=== PATIENT | male | born 1955 | race Hispanic/Latino ===

== ENCOUNTER 2022-09-06 08:15 | Day surgery (SDC) | payer OTHER ==
[2022-09-06] MEDS ORDERED: NA CHLORIDE 0.9% 1,000 ML ONE (08:49)
[2022-09-06 09:16] LABS: MPV 7.7 fL (7.6-11.3)
[2022-09-06 09:47] LABS: Protime INR 1.21
[2022-09-06] MEDS ORDERED: FENTANYL CITR 100 MCG/2 ML ONE (09:55)
[2022-09-06] MEDS ORDERED: NALOXONE 0.4 MG/ML VIAL ONE (09:55)
[2022-09-06] MEDS ORDERED: MIDAZOLAM HCL 2 MG/2 ML INJ ONE (09:55)
[2022-09-06 11:34] VITALS: BMI 29.0
[2022-09-06 14:10] VITALS: BP 131/68; TEMP 97.1; O2SAT 100
--- NOTE | 2022-09-06 18:13 | RAD REPORT ---
EXAM DESCRIPTION: CT - Renal Biopsy CT - 09/06/2022 11:14 am CLINICAL HISTORY: Bilateral renal masses COMPARISON: Thorax W/ Con dated 08/09/2022; Abdomen Pelvis W/Wo Contrast dated 08/07/2022 FINDINGS: Preoperative diagnosis: Bilateral renal masses Post operative diagnosis: Same Conscious Sedation: 2 milligram Versed, 25 mcg Fentanyl. 30 minutes of qyxk-tn-opac time. Patient was continuously monitored by nursing staff. Contrast used: NONE Estimated blood loss: less than 5 mL Specimens: 2 x 18 gauge core biopsies of each lesion on the right and left kidney The patient was placed prone on the table and the flank area was prepped and draped in the usual ster ile fashion. 1% lidocaine was infiltrated into the subcutaneous tissues for local anesthesia. Under c omputed tomographic guidance, a 17 gauge introducer was advanced into the lesion. 2 x 18 gauge core s pecimens were first obtained of the renal lesion on the left side. Using a similar technique, 2 x 18 gauge core specimens were then obtained of the lesion on the right side. Postprocedure imaging demonstrated no complications. Samples were given to pathology for analysis. Th e patient tolerated the procedure without immediate complication and transferred to the recovery room in stable condition. IMPRESSION: 1. Technically successful CT guided biopsy of a left renal mass. 2. Technically successful CT guided biopsy of a right renal mass. 3. Moderate conscious sedation was utilized. 4. No immediate complications. All CT scans are performed using dose optimization technique as appropriate and may include automated exposure control or mA/KV adjustment according to patient size.
== END 2022-09-06 14:20 | disposition home or self-care (01) ==
LOC: DS 08:15
PROVIDERS: ATTEND Urology
DX: C64.2 Malignant neoplasm of left kidney, except renal pelvis (principal); C64.1 Malignant neoplasm of right kidney, except renal pelvis
CPT/HCPCS: 36415; 85049; 85610; 88305; 85730; 50200; J2250; J3010; J7030; J2310

== ENCOUNTER 2023-05-22 14:55 | Emergency (ER) | payer OTHER ==
--- OUTSIDE RECORDS SUMMARY | 2023-05-22 14:58 | XMS REPORT | Continuity of Care Document ---
:1955 Author Organization [facility] t Address [address] [place] [address] [address] [place] [address] Care Team Providers Name Role Phone Carol Guevara Primary Care Physician Doctor Unassigned, [place] Attending Clinician Unavailable Carol Guevara Attending Clinician Ruben Mcdonald MD Attending Clinician AVA MOODY Attending Clinician Unavailable Ava Moody MD Attending Clinician Radiology Attending Clinician Unavailable RADIOLOGY Attending Clinician Unavailable NEAL PALAFOX Attending Clinician Unavailable 2, [facility] Lab Attending Clinician Unavailable Brando Akers MD Attending Clinician BRANDO AKERS Attending Clinician Unavailable GERMAN MILLER Attending Clinician Unavailable Nurse, Ad[facility] Surgery Gu Attending Clinician Unavailable Rosette Sanchez MD Attending Clinician ROSETTE SANCHEZ Attending Clinician Unavailable Sandee Cage Attending Clinician SANDEE RUIZ Attending Clinician Unavailable German Miller MD Attending Clinician Guanakito [employer]ATION[employer] MECHANICGail Attending Clinician Pob, [facility] Lab Main Attending Clinician Unavailable CAROL MORENO Attending Clinician Unavailable CECILLE VELASQUEZ Attending Clinician Unavailable Winston Bloom DO Attending Clinician Cecille Velasquez DO Attending Clinician Lab, Ang - Db Attending Clinician Unavailable Uma Carrillo Attending Clinician UMA CHILDRESS Attending Clinician Unavailable CECILLE VELASQUEZ Admitting Clinician Unavailable Cecille Velasquez DO Admitting Clinician CAROL MORENO Admitting Clinician Unavailable Payers Payer Name Policy Type Policy Number Effective Date Expiration Date 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 kidney [facility] [id number] Bony Problem Common sclerosis [facility] [id number] Pulmonary Problem Com mon nodules [facility] [id number] Urinary Problem Commo n retention [facility] [id number] BPH loc w Problem Com mon urin Spirit obs/LUTS [facility] [id number] Acute Problem Common urinary Spirit retention [facility] [id number] Bilateral Problem Com mon renal Spirit masses [facility] Allergies, Adverse Reactions, Alerts Allergy Allergy Status Severity Reaction(s) Onset Inactive Treating Comm ents Source Name Type Date Date Clinician NO KNOWN Drug Active Univers ALLERGIE Class ity of [facility] Social History Social Habit Start Date Stop Date Quantity Comments Source Gender identity Universit y [facility] Sexual orientation [facility] University o f [facility] o f Alcohol Std Drinks [place] [facility] History [facility] o f Alcohol Binge [facility] History of Tobacco Current Smoker Co mmon Spirit - Use [facility] Sex Assigned At Common Sp diamond - [facility] Exposure to 2022-06-17 2022-06-27 Not sure University of SARS-CoV-2 (event) 00:00:00 15:23:00 [facility] Alcohol intake 2022-06-13 2022-06-13 Ex-drinker University 00:00:00 00:00:00 (finding) [facility] History of Social 2022-03-14 2022-03-14 Univers ity of function 00:00:00 00:00:00 [facility] Cigarettes smoked 2022-03-14 2022-03-14 Univers ity of current (pack per 00:00:00 00:00:00 [facility] ) - Reported Branch Cigarette 2022-03-14 2022-03-14 University of pack-years 00:00:00 00:00:00 [facility] Tobacco use and 2022-03-14 2022-03-14 Smokeless Universit y of exposure 00:00:00 00:00:00 tobacco non-user [facility] Alcohol Comment 2022-03-14 2022-03-14 quit 2.5 years Unive rsity of 00:00:00 00:00:00 ago [facility] Smoking Status Start Date Stop Date Source Current Smoker 2022-08-29 00:00:[address] [facility] Medications Ordered Filled Start Stop Current Ordering Indication Dosage Frequency Signature Comments Components Source Medication Medication Date Date Medication? Clinician (SIG) Name Name AMLODIPINE Yes [id number] 10mg TAKE 1 U nivers 10 mg 5-29 TABLET BY ity of tablet 00:00: MOUTH [place] 00 EVERY Medical MORNING. Branch MUST BE SEEN FOR FURTHER REFILLS AMLODIPINE Yes [id number] 10mg TAKE 1 U nivers 10 mg 5-29 TABLET BY ity of tablet 00:00: MOUTH [place] 00 EVERY Medical MORNING. Branch MUST BE SEEN FOR FURTHER REFILLS amLODIPine Yes [id number] 10mg Take 1 U nivers 10 mg 4-26 tablet by ity of tablet 00:00: mouth [place] 00 every Medical morning. Branch MUST BE SEEN FOR FURTHER REFILLS tamsulosin Yes [id number] .4mg Take 1 Univers 0.4 mg 24 4-26 capsule by ity of hr capsule 00:00: mouth [place] 00 every Medical morning. Branch MUST BE SEEN FOR FURTHER REFILLS amLODIPine 2023-0 Yes [id number] 10mg Take 1 U nivers 10 mg 4-26 tablet by ity of tablet 00:00: mouth [place] 00 every Medical morning. [place] MUST BE SEEN FOR FURTHER REFILLS tamsulosin 2022-0 Yes [id number] .4mg Take 1 Univers 0.4 mg 24 4-26 capsule by ity of hr capsule 00:00: mouth [place] 00 every Medical morning. Branch MUST BE SEEN FOR FURTHER REFILLS tamsulosin 2022-0 Yes [id number] .4mg Take 1 Univers 0.4 mg 24 4-26 capsule by ity of hr capsule 00:00: mouth [place] 00 every Medical morning. Branch MUST BE SEEN FOR FURTHER REFILLS tamsulosin 2022-0 Yes [id number] .4mg Take 1 Univers 0.4 mg 24 4-26 capsule by ity of hr capsule 00:00: mouth [place] 00 every Medical morning. [place] MUST BE SEEN FOR FURTHER REFILLS amLODIPine 2022-0 2022- No [id number] 10mg Take 1 Univers 10 mg 4-26 05-29 tablet by ity of tablet 00:00: 00:00 mouth [place] 00 :00 every Medical morning. [place] MUST BE SEEN FOR FURTHER REFILLS AMLODIPINE 2022-0 Yes [id number] TAKE 1 U nivers 10 mg 3-30 TABLET BY ity of tablet 00:00: MOUTH [place] 00 EVERY DAY Medical IN THE [place] MORNING TAMSULOSIN 2022-0 Yes [id number] TAKE 1 Univers 0.4 mg 24 3-30 CAPSULE BY ity of hr capsule 00:00: MOUTH [place] 00 EVERY Medical MORNING Branch AMLODIPINE 2022-0 Yes [id number] TAKE 1 U nivers 10 mg 3-30 TABLET BY ity of tablet 00:00: MOUTH [place] 00 EVERY DAY Medical IN THE [place] MORNING TAMSULOSIN 2022-0 Yes [id number] TAKE 1 Univers 0.4 mg 24 3-30 CAPSULE BY ity of hr capsule 00:00: MOUTH [place] 00 EVERY Medical MORNING Branch AMLODIPINE 3-0 2022- No [id number] TAKE 1 Univers 10 mg 3-30 04-26 TABLET BY ity of tablet 00:00: 00:00 MOUTH [place] 00 :00 EVERY DAY Medical IN THE [place] MORNING TAMSULOSIN 3-0 2022- No [id number] TAKE 1 Univers 0.4 mg 24 3-30 04-26 CAPSULE BY ity of hr capsule 00:00: 00:00 MOUTH [place] 00 :00 EVERY Medical MORNING Branch TAMSULOSIN 3-0 Yes [id number] TAKE 1 Univers 0.4 mg 24 3-02 CAPSULE BY ity of hr capsule 00:00: MOUTH [place] 00 EVERY Medical MORNING Branch AMLODIPINE 3-0 Yes [id number] TAKE 1 U nivers 10 mg 3-02 TABLET BY ity of tablet 00:00: MOUTH [place] 00 EVERY DAY Medical IN THE [place] MORNING TAMSULOSIN 3-0 Yes [id number] TAKE 1 Univers 0.4 mg 24 3-02 CAPSULE BY ity of hr capsule 00:00: MOUTH [place] 00 EVERY Medical MORNING Branch AMLODIPINE 2022-0 Yes [id number] TAKE 1 U nivers 10 mg 3-02 TABLET BY ity of tablet 00:00: MOUTH [place] 00 EVERY DAY Medical IN THE [place] MORNING TAMSULOSIN 2022-0 Yes [id number] TAKE 1 Univers 0.4 mg 24 3-02 CAPSULE BY ity of hr capsule 00:00: MOUTH [place] 00 EVERY Medical MORNING Branch AMLODIPINE 3-0 Yes [id number] TAKE 1 U nivers 10 mg 3-02 TABLET BY ity of tablet 00:00: MOUTH [place] 00 EVERY DAY Medical IN THE [place] MORNING TAMSULOSIN 2022-0 2022- No [id number] TAKE 1 Univers 0.4 mg 24 3-02 03-30 CAPSULE BY ity of hr capsule 00:00: 00:00 MOUTH [place] 00 :00 EVERY Medical MORNING Branch AMLODIPINE 3-0 3- No [id number] TAKE 1 Univers 10 mg 3-02 03-30 TABLET BY ity of tablet 00:00: 00:00 MOUTH [place] 00 :00 EVERY DAY Medical IN THE [place] MORNING TAMSULOSIN 3-0 3- No [id number] TAKE 1 Univers 0.4 mg 24 3-02 03-30 CAPSULE BY ity of hr capsule 00:00: 00:00 MOUTH [place] 00 :00 EVERY Medical MORNING Branch AMLODIPINE 3-0 2022- No [id number] TAKE 1 Univers 10 mg 3-02 03-30 TABLET BY ity of tablet 00:00: 00:00 MOUTH [place] 00 :00 EVERY DAY Medical IN THE [place] MORNING tamsulosin 3-0 Yes [id number] .4mg Take 1 Univers (FLOMAX) 2-02 capsule by ity o f 0.4 mg 24 00:00: mouth [place] capsule 00 the Medical morning. Branch amLODIPine 2022-0 Yes [id number] 10mg Take 1 U nivers 10 mg 2-02 tablet by ity of tablet 00:00: mouth in [place] 00 the Medical morning. Branch tamsulosin 2022-0 Yes [id number] .4mg Take 1 Univers (FLOMAX) 2-02 capsule by ity o f 0.4 mg 24 00:00: mouth [place] capsule 00 the Medical morning. Branch amLODIPine 2022-0 Yes [id number] 10mg Take 1 U nivers 10 mg 2-02 tablet by ity of tablet 00:00: mouth in [place] 00 the Medical morning. Branch tamsulosin 2022-0 2022- No [id number] .4mg Take 1 Univers (FLOMAX) 2-02 03-02 capsule by ity of 0.4 mg 24 00:00: 00:00 mouth in [place] hr capsule 00 :00 the Medical morning. Branch amLODIPine 2022-0 2022- No [id number] 10mg Take 1 Univers 10 mg 2-02 03-02 tablet by ity of tablet 00:00: 00:00 mouth in [place] 00 :00 the Medical morning. Branch Oxybutynin Oxybutynin 2021-09- No 1{table QD Oxybutynin Chloride ER Chloride ER 09-30 t} Chloride 5 MG 5 MG 00:00: 00:00 ER 5 MG 00 :00 Oxybutynin Oxybutynin 2021-09- No 1{table QD Oxybutynin Chloride ER Chloride ER 09-30 t} Chloride 5 MG 5 MG 00:00: 00:00 ER 5 MG 00 :00 tamsulosin 2021-0 Yes [id number] .4mg Take 1 Univers (FLOMAX) 9-04 capsule by ity o f 0.4 mg 24 00:00: mouth [place] capsule 00 the Medical morning. Branch tamsulosin 2021-0 Yes [id number] .4mg Take 1 Univers (FLOMAX) 9-04 capsule by ity o f 0.4 mg 24 00:00: mouth [place] capsule 00 the Medical morning. Branch tamsulosin 2-0 Yes [id number] .4mg Take 1 Univers (FLOMAX) 9-04 capsule by ity o f 0.4 mg 24 00:00: mouth [place] capsule 00 the Medical morning. Branch tamsulosin 2022-0 Yes [id number] .4mg Take 1 Univers (FLOMAX) 9-04 capsule by ity o f 0.4 mg 24 00:00: mouth [place] capsule 00 the Medical morning. Branch tamsulosin 2022-0 Yes [id number] .4mg Take 1 Univers (FLOMAX) 9-04 capsule by ity o f 0.4 mg 24 00:00: mouth [place] capsule 00 the Medical morning. Branch tamsulosin 2022-0 Yes [id number] .4mg Take 1 Univers (FLOMAX) 9-04 capsule by ity o f 0.4 mg 24 00:00: mouth [place] capsule 00 the Medical morning. Branch tamsulosin 2022-0 Yes [id number] .4mg Take 1 Univers (FLOMAX) 9-04 capsule by ity o f 0.4 mg 24 00:00: mouth [place] capsule 00 the Medical morning. Branch tamsulosin 2022-0 Yes [id number] .4mg Take 1 Univers (FLOMAX) 9-04 capsule by ity o f 0.4 mg 24 00:00: mouth [place] capsule 00 the Medical morning. Branch tamsulosin 2022-0 Yes [id number] .4mg Take 1 Univers (FLOMAX) 9-04 capsule by ity o f 0.4 mg 24 00:00: mouth [place] capsule 00 the Medical morning. Branch tamsulosin 2022-0 Yes [id number] .4mg Take 1 Univers (FLOMAX) 9-04 capsule by ity o f 0.4 mg 24 00:00: mouth [place] capsule 00 the Medical morning. Branch tamsulosin 2022-0 Yes [id number] .4mg Take 1 Univers (FLOMAX) 9-04 capsule by ity o f 0.4 mg 24 00:00: mouth [place] capsule 00 the Medical morning. Branch tamsulosin 2022-0 Yes [id number] .4mg Take 1 Univers (FLOMAX) 9-04 capsule by ity o f 0.4 mg 24 00:00: mouth [place] capsule 00 the Medical morning. Branch tamsulosin 2-0 2023- No [id number] .4mg Take 1 Univers (FLOMAX) 9-04 -02 capsule by ity of 0.4 mg 24 00:00: 00:[address] [facility] as hr capsule 00 :00 the Medical morning. Branch amLODIPine 2021-0 Yes [id number] 10mg Take 1 U nivers 10 mg 8-04 tablet by ity of tablet 00:00: mouth in [place] 00 the Medical morning. Branch amLODIPine 2021-0 Yes [id number] 10mg Take 1 U nivers 10 mg 8-04 tablet by ity of tablet 00:00: mouth in [place] the Medical morning. Branch amLODIPine 2021-0 Yes [id number] 10mg Take 1 U nivers 10 mg 8-04 tablet by ity of tablet 00:00: mouth in [place] the Medical morning. Branch amLODIPine 2021-0 Yes [id number] 10mg Take 1 U nivers 10 mg 8-04 tablet by ity of tablet 00:00: mouth in [place] the Medical morning. Branch amLODIPine 2021-0 Yes [id number] 10mg Take 1 U nivers 10 mg 8-04 tablet by ity of tablet 00:00: mouth in [place] the Medical morning. Branch amLODIPine 2021-0 Yes [id number] 10mg Take 1 U nivers 10 mg 8-04 tablet by ity of tablet 00:00: mouth in [place] the Medical morning. Branch amLODIPine 2021-0 Yes [id number] 10mg Take 1 U nivers 10 mg 8-04 tablet by ity of tablet 00:00: mouth in [place] the Medical morning. Branch amLODIPine 2-0 Yes [id number] 10mg Take 1 U nivers 10 mg 8-04 tablet by ity of tablet 00:00: mouth in [place] the Medical morning. Branch amLODIPine 2-0 Yes [id number] 10mg Take 1 U nivers 10 mg 8-04 tablet by ity of tablet 00:00: mouth in [place] 00 the Medical morning. Branch amLODIPine 2-0 Yes [id number] 10mg Take 1 U nivers 10 mg 8-04 tablet by ity of tablet 00:00: mouth in [place] 00 the Medical morning. Branch amLODIPine 2-0 Yes [id number] 10mg Take 1 U nivers 10 mg 8-04 tablet by ity of tablet 00:00: mouth in [place] 00 the Medical morning. Branch amLODIPine 0 Yes [id number] 10mg Take 1 U nivers 10 mg 8-04 tablet by ity of tablet 00:00: mouth in [place] 00 the Medical morning. Branch amLODIPine 0 Yes [id number] 10mg Take 1 U nivers 10 mg 8-04 tablet by ity of tablet 00:00: mouth in [place] 00 the Medical morning. Branch amLODIPine 0 2022- No [id number] 10mg Take 1 Univers 10 mg 8-04 - tablet by ity of tablet 00:00: 00:00 mouth in [place] 00 :00 the Medical morning. Branch tamsulosin 2021- No [id number] .4mg Take 1 Univers (FLOMAX) 03-23 capsule by ity of 0.4 mg 24 00:00: 00:[address] [facility] as hr capsule 00 :00 the Medical morning Branch for 30 days. amLODIPine amLODIPine No 1{table QD amLODIPine Besylate 10 Besylate 10 t} Besylate MG MG 10 MG Tamsulosin Tamsulosin No 1{capsu QD Tamsulosin HCl 0.4 MG HCl 0.4 MG le} HCl 0.4 MG amLODIPine amLODIPine No 1{table QD amLODIPine Besylate 10 Besylate 10 t} Besylate MG MG 10 MG Tamsulosin Tamsulosin No 1{capsu QD Tamsulosin HCl 0.4 MG HCl 0.4 MG le} HCl 0.4 MG amLODIPine amLODIPine No 1{table QD amLODIPine Besylate 10 Besylate 10 t} Besylate MG MG 10 MG Tamsulosin Tamsulosin No 1{capsu QD Tamsulosin HCl 0.4 MG HCl 0.4 MG le} HCl 0.4 MG Tamsulosin Tamsulosin No 1{capsu QD Tamsulosin HCl 0.4 MG HCl 0.4 MG le} HCl 0.4 MG amLODIPine amLODIPine No 1{table QD amLODIPine Besylate 10 Besylate 10 t} Besylate MG MG 10 MG amLODIPine amLODIPine No 1{table QD amLODIPine Besylate 10 Besylate 10 t} Besylate MG MG 10 MG Tamsulosin Tamsulosin No 1{capsu QD Tamsulosin HCl 0.4 MG HCl 0.4 MG le} HCl 0.4 MG amLODIPine amLODIPine No 1{table QD amLODIPine Besylate 10 Besylate 10 t} Besylate MG MG 10 MG Tamsulosin Tamsulosin No 1{capsu QD Tamsulosin HCl 0.4 MG HCl 0.4 MG le} HCl 0.4 MG Vital Signs Vital Name Observation Time Observation Value Comments Source height 2022-08-29 14:45:00 70 [in_i] [facility] weight 2022-08-29 14:45:00 201 [lb_av] [facility] temperature 2022-08-29 14:45:00 97.9 [degF] [facility] bmi 2022-08-29 14:45:00 28.84 kg/m2 [facility] oximetry 2022-08-29 14:45:00 97 % [facility] blood pressure 2022-08-29 14:45:00 124 mm[Hg] [facility] - systolic [facility] blood pressure 2022-08-29 14:45:00 76 mm[Hg] Common [facility] - diastolic [facility] height 2022-08-08 14:15:00 70 [in_i] [facility] weight 2022-08-08 14:15:00 202.6 [lb_av] [facility] temperature 2022-08-08 14:15:00 98.6 [degF] [facility] bmi 2022-08-08 14:15:00 29.07 kg/m2 [facility] oximetry 2022-08-08 14:15:00 98 % [facility] respiratory rate 2022-08-08 14:15:00 18 /min Comm on [facility] blood pressure 2022-08-08 14:15:00 141 mm[Hg] Common [facility] - systolic [facility] blood pressure 2022-08-08 14:15:00 66 mm[Hg] Common [facility] - diastolic [facility] height 2022-07-04 15:45:00 70 [in_i] [facility] weight 2022-07-04 15:45:00 199 [lb_av] [facility] temperature 2022-07-04 15:45:00 97.6 [degF] [facility] bmi 2022-07-04 15:45:00 28.55 kg/m2 [facility] oximetry 2022-07-04 15:45:00 96 % [facility] respiratory rate 2022-07-04 15:45:00 18 /min Comm on [facility] blood pressure 2022-07-04 15:45:00 119 mm[Hg] Common [facility] - systolic [facility] blood pressure 2022-07-04 15:45:00 58 mm[Hg] Common [facility] - diastolic [facility] Body weight 2022-06-13 18:02:00 89.086 kg [facility] BMI 2022-06-13 18:02:00 28.18 kg/m2 [facility] Body height 2022-05-16 19:01:00 177.8 cm [facility] Body weight 2022-05-16 19:01:00 87.998 kg [facility] BMI 2022-05-16 19:01:00 27.84 kg/m2 [facility] Procedures Procedure Date / Time Performing Clinician Source Performed EXTERNAL PROVIDER 2023-04-09 05:01:00 [facility] 2022-11-05 06:01:00 [facility] SC[facility] LAB RESULTS 2022-10-04 06:01:00 [facility]igned, [facility]EF[facility] 2022-07-13 18:51:26 Doctor Unassigned, No [facility] PHYSICIAN ORDERS 2022-06-27 05:01:00 Doctor Unassigned, No [facility] AUTHORIZATION FOR 2022-06-13 05:01:00 Doctor Unassigned, No [facility] RELEASE OF PHI Name [facility] Branch Encounters Start End Encounter Admission Attending Care Care Encounter Source Date/Time Date/Time Type Type Clinicians Facility Department ID 2023-03-30 Outpatient [facility] [id number] Common 10:47:00 [id number] [facility] 2022-10-31 Outpatient [facility] [id number] Common 14:44:02 [id number] [facility] 2022-10-01 Outpatient [facility] [id number] Common 14:33:02 [id number] [facility] 2022-07-04 Outpatient [facility] [id number] Common 14:39:03 [id number] [facility] 2023-04-09 2023-04-09 Orders Doctor JAMISON 1.2.840.114 [id number] Univers 00:00:00 00:00:00 Only Unassigned, SOFIA 350.1.13.10 ity of [place] [facility] 4.2.7.2.686 [place] as [id number] [address] 2023-01-27 2023-01-27 Refill Tiffanie, [facility] 1.2.840.114 [id number] Univers 00:00:00 00:00:00 Carol A HEALTH 350.1.13.10 i ty of EXETER 4.2.7.2.686 [place] RADHIKA?BLEA [id number] [address] MEDICAL OFFICE BUILDING 2023-01-27 2023-01-27 Refill Tiffanie, [facility] 1.2.840.114 [id number] Univers 00:00:00 00:00:00 Carol A HEALTH 350.1.13.10 i ty of EXETER 4.2.7.2.686 [place] as RADHIKA?BLEA [id number] [address] MEDICAL OFFICE BUILDING 2022-12-23 2022-12-23 Refill Tiffanie, [facility] 1.2.840.114 [id number] Univers 00:00:00 00:00:00 Carol A HEALTH 350.1.13.10 i ty of EXETER 4.2.7.2.686 [place] as RADHIKA?BLEA [phone] [address] OFFICE [facility] 2022-11-23 2022-11-23 [facility] 1.2.840.114 [id number] Univers 00:00:00 00:00:00 Ruben HEALTH 350.1.13.10 it y of [place] 4.2.7.2.686 [place] RADHIKA?BLEA [id number] [address] OFFICE [facility] 2022-11-09 2022-11-09 [facility] 1.2.840.114 [id number] Univers 00:00:00 00:00:00 Carol A HEALTH 350.1.13.10 i ty of EXETER 4.2.7.2.686 [place] as RADHIKA?BLEA [id number] [address] 2022-11-05 2022-11-05 Orders Doctor JAMISON 1.2.840.114 [id number] Univers 00:00:00 00:00:00 Only Unassigned, SOFIA 350.1.13.10 ity of [place] [facility] 4.2.7.2.686 [place] as [id number] [address] 2022-10-26 2022-10-26 [facility] 1.2.840.114 [id number] Univers 00:00:00 00:00:00 Ruben HEALTH 350.1.13.10 it y of EXETER 4.2.7.2.686 [place] as RADHIKA?BLEA [phone] [address] OFFICE [facility] 2022-10-11 2022-10-11 Telephone [facility] [id number] Univers 00:00:00 00:00:00 Carol A HEALTH 350.1.13.10 i ty of EXETER 4.2.7.2.686 [place] as RADHIKA?BLEA [id number] [address] 2022-10-04 2022-10-04 [facility] 1.2.840.114 [id number] Univers 00:00:00 00:00:00 Carol Vinod HEALTH 350.1.13.10 i ty of EXETER 4.2.7.2.686 [place] as RADHIKA?BLEA [id number] [address] MEDICAL OFFICE BUILDING 2022-10-04 2022-10-04 Orders Doctor JAMISON 1.2.840.114 [id number] Univers 00:00:00 00:00:00 Only Unassigned, SOFIA 350.1.13.10 ity of [place] [facility] 4.2.7.2.686 [place] as [phone] [address] 2022-09-25 2022-09-25 Telephone Tiffanie [facility] [id number] [facility] 00:00:00 00:00:00 Carol Vinod HEALTH 350.1.13.10 i ty of EXETER 4.2.7.2.686 [place] RADHIKA?BLEA [id number] [address] MEDICAL OFFICE [facility] 2022-09-12 2022-09-12 (TEL) STLC STLMLC [id number] Co mmon 00:00:00 00:00:00 [facility] 2022-08-30 2022-08-30 (TEL) STLMLC STLMLC [id number] Co mmon 00:00:00 00:00:00 Spirit [facility] 2022-08-29 2022-08-29 OFFICE STLMLC STLMLC [id number] Co mmon 00:00:00 00:00:00 VISIT EST Spir it PT LEVEL 3 - [facility] 2022-08-08 2022-08-08 OFFICE STLMLC STLMLC [id number] Co mmon 00:00:00 00:00:00 VISIT Spirit ESTAB PT - CHI LEVEL 5 [facility] 2022-07-18 2022-07-18 (TEL) STLMLC STLMLC [id number] Co mmon 00:00:00 00:00:00 Spirit [facility] 2022-07-13 2022-07-13 Outpatient Isidoro MOODY [facility] [id number] Univers 13:43:44 23:59:00 AVA ity of [facility] 2022-07-13 2022-07-13 Hospital [facility], [facility] 1.2.840.114 [id number] Univers 13:43:44 23:59:00 Encounter Ava Harrison KAYCE 350.1.13.10 [facility] [place] [id number] [facility] [address] 2022-07-13 2022-07-13 [facility] Radiology [facility] 1.2.840.114 [id number] Univers 13:21:39 13:42:00 Encounter KAYCE 350.1.13.10 [facility]7.2.[address] [phone] [address] 2022-07-13 2022-07-13 Orders Doctor JAMISON [id number] [id number] Univers 00:00:00 00:00:00 Only Unassigned, SOFIA 350.1.13.10 ity of [place] [facility] 4.2.7.2.[phone] 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 2, Adc Lab [facility] 1.2.840.114 [id number] Univers 15:45:00 16:00:00 Visit Brando Akers 350.1.13.10 [facility] 4.2.7.2.[place] PROF[place] [id number] Ms dical COUNT INCLUDES THE [facility] [address] [facility] 2022-06-27 2022-06-27 Outpatient R BRANDO AKERS [facility] HEALTH 1 [id number] Univers 15:45:00 15:45:00 BRANDO AKERSy [facility] 2022-06-27 2022-06-27 Orders Doctor JAMISON 1.2.840.114 [id number] Univers 00:00:00 00:00:00 Only Unassigned, SOFIA 350.1.13.10 ity of [place] [facility] 4.2.7.2.686 El as [id number] [address] 2022-06-21 2022-06-21 Outpatient R PAUL [facility] [id number] Univers 10:45:00 10:45:00 GERMAN james [facility] 2022-06-13 2022-06-13 Nurse Nurse, [facility] Surgery [facility] 1.2. 840.114 [id number] Univers 13:00:00 13:45:07 Visit Rosette Sanchez 350.1.13.10 it[place] [id number] [facility] 204 [facility] 2022-06-13 2022-06-13 [facility] [id number] Univers 13:00:00 13:00:00 [facility] 2022-06-13 2022-06-13 Orders Doctor SWIFT 1.2.840.114 [id number] Univers 00:00:00 00:00:00 Only Unassigned, SOFIA 350.1.13.10 [facility] 4.2.7.2.686 [place] as [id number] [address] 2022-06-05 2022-06-05 [facility] 1.2.840.114 [id number] Univers 00:00:00 00:00:00 Carol A [facility] 350.1.13.10 i ty of [place] 4.2.7.2.686 El as RADHIKA?BLEA [phone] [address] MEDICAL OFFICE BUILDING 2022-05-16 2022-05-16 Nurse Nurse, [facility] Surgery [facility] 1.2. 840.114 [id number] Univers 14:15:00 14:45:38 Visit Rosette Sanchez 350.1.13.10 it[facility] [place] [phone] [facility] 204 [facility] 2022-05-16 2022-05-16 Out[facility] [id number] Univers 14:15:00 14:15:00 [facility] 2022-04-21 2022-04-21 Telephone [facility] 1.2.840.114 [id number] Univers 00:00:00 00:00:00 Sandee DEVRIES 350.1.13.10 it[place] [id number] [address] 2022-04-21 2022-04-21 Refill [facility] 1.2.840.114 [id number] Univers 00:00:00 00:00:00 Carol A [facility] 350.1.13.10 i ty [facility] 4.2.7.2.686 [place] as RADHIKA?BLEA [id number] [address] 2022-04-19 2022-04-19 Outpatient [facility] [id number] Univers 14:00:00 15:19:02 SANDEE day [facility] 2022-04-19 2022-04-19 Nurse Nurse, [facility] Surgery [facility] 1.2. 840.114 [id number] Univers 14:00:00 15:19:02 Visit Sandee Ruiz 350.1.13. 10 ity [facility] 4.[place] [id number] [address] 2022-04-19 2022-04-19 [facility] [id number] Univers 14:00:00 15:19:02 SANDEE day [facility] 2022-04-19 2022-04-19 Outpatient R [facility] [id number] Univers 14:00:00 14:00:00 ity of [facility] 2022-04-18 2022-04-18 Telephone [facility] 1.2.840.114 [id number] Univers 00:00:00 00:00:00 German DEVRIES 350.1.13.10 ity of [facility] 4.[place] [id number] [address] 2022-04-16 2022-04-16 Telephone [facility] 1.2.840.114 [id number] Univers 00:00:00 00:00:00 Sandee DEVRIES 350.1.13.10 ity [facility] 4.[place] [id number] [facility] 204 [facility] 2022-04-06 2022-04-06 Patient [facility] 1.2.840.114 [id number] Univers 00:00:00 00:00:00 Outreach Gail VICTORIA 350.1.13.10 i ty of 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 10 [facility] [place] [phone] [facility] 353 [facility] 2022-04-05 2022-04-05 Outpatient R [facility] [id number] Univers 12:45:00 12:45:00 SANDEE ramirez o f [facility] 2022-04-05 2022-04-05 Outpatient [facility] [id number] Univers 11:30:00 11:30:00 CAROL ramirez [facility] 2022-04-05 2022-04-05 Office [facility] 1.2.840.114 [id number] Univers 11:00:00 11:26:50 Visit Carol Brock HEALTH 350.1.13.10 i ty of [facility] 4.2.7.2.686 [place] as RADHIKA?BLEA [id number] [facility] 044 [facility] 2022-04-05 2022-04-05 Out[facility] [id number] Univers 11:00:00 11:26:50 CAROL ramirez [facility] 2022-04-02 2022-04-02 Office [facility] 1.2.840.114 [id number] Univers 14:30:00 15:36:06 Visit Sandeelulu DEVRIES 350.1.13.10 ity of [facility] 4.2.[place] [id number] [facility] 204 [facility] 2022-04-02 2022-04-02 Outpatient R [facility] [id number] Univers 14:30:00 15:36:06 SANDEE ramirez o f [facility] 2022-04-02 2022-04-02 Outpatient R [facility] [id number] Univers 14:30:00 15:36:06 SANDEE ramirez o [facility] 2022-04-02 2022-04-02 Telephone [facility] 1.2.840.114 [id number] Univers 00:00:00 00:00:00 Sandee DEVRIES 350.1.13.10 ity [facility] [place].[address] [address] [facility] [id number] [facility] 204 [facility] 2022-03-20 2022-03-22 Out[facility] [id number] Univers 14:42:00 14:30:00 CECILLE ramirez [facility] 2022-03-20 2022-03-22 Emergency [facility] 1.2.840. 114 [id number] Univers 14:42:00 14:30:00 Cecille Velasquez 350.1.13.10 ity [facility] 4.[place] [id number] [address] 2022-03-20 2022-03-20 Telephone [facility] 1.2.049.509 [id number] Univers 00:00:00 00:00:00 Carol A HEALTH 350.1.13.10 i ty agus [facility] 4.2.7.2.686 [place] as RADHIKA?BLEA [phone] [address] OFFICE [facility] 2022-03-19 2022-03-19 Outpatient [facility] [id number] Univers 08:53:02 23:59:00 CAROLTIFFANI ramirez [facility] 2022-03-19 2022-03-19 Hospital [facility] 1.2.840.114 [id number] Univers 08:53:02 23:59:00 Encounter Carol RICHTERTON 350.1.13.10 ity of [place] 4.2.7.2.686 [facility] [id number] [address] 2022-03-14 2022-03-14 Outpatient 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 4.2.7.2.686 [place] as RADHIKA?BLEA [phone] Ms livhiar TELLODNONA [address] [place] MEDICAL OFFICE BUILDING 2022-03-14 2022-03-14 Outpatient [facility] [id number] Univers 11:00:00 11:39:58 CAROL ramirez [facility] 2022-03-14 2022-03-14 Outpatient [facility] [id number] Univers 11:00:00 11:39:58 CAROL ramirez [facility] 2022-03-14 2022-03-14 Office [facility] 1.2.840.114 [id number] Univers 11:00:00 11:39:58 Visit Carol Brock HEALTH 350.1.13.10 i ty of [place] 4.2.7.2.686 El as RADHIKA?BLEA [id number] Ms livhira [address] MEDICAL OFFICE BUILDING 2022-03-12 2022-03-12 Emergency [facility] [id number] Univers 15:28:00 18:13:00 Uma Isidoro [place] 350.1.13.10 i ty of [place] 4.2.7.2.686 [facility] [id number] [place] [address] [address] 2022-03-12 2022-03-12 Emergency X [facility] ERT [id number] Univers 15:28:00 18:13:00 [facility] 2022-03-12 2022-03-12 Emergency X [facility] ERT [id number] Univers 15:28:00 18:13:00 [facility] 2022-03-12 2022-03-12 Emergency X [facility] ERT [id number] Univers 15:28:00 18:13:00 [facility] Results This patient has no known results.
[2023-05-22 15:51] LABS: Absolute Lymphocytes (CBC) 0.6 K/uL (0.7-4.9); Hematocrit 42.3 % (39.6-49.0); Lymphocytes % 3.6 % (15.3-44.8); MCV 94.5 fL (80-100); MPV 7.9 fL (7.6-11.3); Platelets 200 thou/uL (152-406); RBC Red Blood Cell Count 4.48 M/uL (4.33-5.43)
[2023-05-22 16:13] LABS: Potassium 3.9 mEq/L (3.5-5.1)
[2023-05-22 16:14] LABS: Albumin 3.7 g/dL (3.4-5.0); Bilirubin Total 0.9 mg/dL (0.2-1.0); Protein, Total 7.6 g/dL (6.4-8.2)
[2023-05-22] MEDS ORDERED: FENTANYL CITR 100 MCG/2 ML ONE (16:15)
[2023-05-22] MEDS ORDERED: ONDANSETRON 4 MG/2 ML VIAL ONE ×2 (16:15→22:34)
[2023-05-22] MEDS ORDERED: FAMOTIDINE 20 MG/2 ML VIAL IV ONE (16:15)
[2023-05-22] MEDS ORDERED: NA CHLORIDE 0.9% 1,000 ML ONE (16:15)
--- NOTE | 2023-05-22 17:32 | RAD REPORT ---
EXAM DESCRIPTION: CT - Abdomen Pelvis W Contrast - 05/22/2023 5:00 pm CLINICAL HISTORY: ABD PAIN COMPARISON: Renal Biopsy\CT dated 09/06/2022; Thorax W/ Con dated 04/09/2023; Thorax W/ Con dated 023; Bone Imaging Whole Body dated 04/09/2023; Abdomen Pelvis W/Wo Contrast dated 08/07/2022 TECHNIQUE: Thin cut axial CT imaging of the abdomen and pelvis was performed following intravenous a dministration of 100 mL Isovue 300. Multiplanar reformats were generated and reviewed. All CT scans are performed using dose optimization technique as appropriate and may include automated exposure control or mA/KV adjustment according to patient size. FINDINGS: No suspicious findings in the lung bases. Stable reticular right more than left basilar op acities, may relate to scarring. The liver, spleen, and pancreas show no suspicious findings. Gallbladder is markedly distended, with wall thickening, pericholecystic fat stranding. A focus of gas near the fundus, this may be present w ithin a radiolucent calculus. Fat stranding extends towards the adjacent retroperitoneum and rowdy he patis. Mild central intrahepatic biliary ductal prominence. Mild hyperenhancement noted along the juan carlos tral biliary radicles and the common hepatic duct. Symmetric renal function is seen with no hydronephrosis or radiopaque calculi. Transcortical left yudelka al interpolar mass, heterogeneously enhancing, with central cystic component measuring 4.5 x 3.5 x 4. 7 cm. A right mid to lower pole exophytic renal mass measures 3.7 x 3.4 x 2.5 cm. Both are probably s table since the 08/07/2022 study consistent. No dilated bowel loops or bowel wall thickening. Trace free fluid in the pelvis. No free air, fluid c ollections, or inflammatory stranding. Bilateral inguinal hernias, with some fluid content within the right hernia sac. No other suspicious mass or bulky lymphadenopathy. Prostate is markedly enlarged. Urinary bladder is decompressed with Arenas catheter place Sclerotic lesions within the bodies of L4 and S2 are stable. No suspicious bony findings. IMPRESSION: Markedly distended gallbladder with wall thickening and pericholecystic fat stranding, c oncerning for acute cholecystitis. Focus of gas near the fundus may be present within a radiolucent s tone. Fat stranding extends into the adjacent retroperitoneum and rowdy hepatis. Mild linear enhancement no denzel along the common hepatic duct and central biliary radicles, could be sympathetic inflammation or related to ongoing cholangitis. Please correlate clinically. Other findings as above, including bilateral renal masses, previously biopsied. The findings were communicated to Haylee Thorpe on 05/22/2023 at 17:25 hours.
--- NOTE | 2023-05-22 18:48 | RAD REPORT ---
EXAM DESCRIPTION: US - Abdomen Exam Limited - 05/22/2023 5:52 pm CLINICAL HISTORY: ABD PAIN COMPARISON: Abdomen Pelvis W Contrast dated 05/22/2023 TECHNIQUE: Sonographic grayscale and color flow images of the right upper abdominal quadrant were obtained. FINDINGS: The gallbladder is distended, with innumerable shadowing stones and sludge. Mild perichole cystic fluid. Gallbladder wall thickening, up to 5 millimeter. The common bile duct is normal measuri ng 2 mm. The liver demonstrates no findings of intrahepatic biliary dilatation. IMPRESSION: Cholelithiasis with gallbladder wall thickening and pericholecystic fluid suggestive of acute cholecystitis. No intra or extrahepatic biliary ductal dilation.
--- NOTE | 2023-05-22 19:01 | ER ---
Nurse's Notes [facility] Name: Patrice Bush Age: 67 yrs Sex: Male : 1955 Arrival Date: 05/22/2023 Time: 14:55 Bed 17 Private MD: Diagnosis: Acute cholecystitis Presentation: 05/22 15:10 Chief complaint: Patient states: Burning pain in epigastric area that started this ph morning, states that pain has moved to RUQ, does not radiate, also reports N/V. Coronavirus screen: Vaccine status: Patient reports being unvaccinated. Ebola Screen: No symptoms or risks identified at this time. Initial Sepsis Screen: Does the patient meet any 2 criteria? No. Patient's initial sepsis screen is negative. Does the patient have a suspected source of infection? No. Patient's initial sepsis screen is negative. Risk Assessment: Do you want to hurt yourself or someone else? Patient reports no desire to harm self or others. Onset of symptoms was May 22, 2023. 15:10 Method Of Arrival: Wheelchair ph 15:10 Acuity: NUHA 3 ph Historical: - Allergies: 15:12 No Known Allergies; ph - PMHx: 15:12 renal caancer, bilateral; prostate problems; Arenas; Hypertensive disorder; ph - PSHx: 15:12 Appendectomy; ph - Immunization history:: Adult Immunizations unknown. - Social history:: Smoking status: Patient reports the use of cigarette tobacco products, smokes one-half pack cigarettes per day. Screenin:15 [facility] ED Fall Risk Assessment (Adult) Score/Fall Risk Level 0 - 2 = Low Risk. Abuse eh3 screen: Denies threats or abuse. Denies injuries from another. Nutritional screening: No deficits noted. Tuberculosis screening: No symptoms or risk factors identified. Assessment: 15:15 General: Appears in no apparent distress. uncomfortable, Behavior is cooperative, eh3 appropriate for age. Pain: Complains of pain in abdomen. Neuro: Level of Consciousness is awake, alert, obeys commands, Oriented to person, place, time, situation. Cardiovascular: Capillary refill < 3 seconds Patient's skin is warm and dry. Respiratory: Airway is patent Respiratory effort is even, unlabored, Respiratory pattern is regular, symmetrical. GI: Abdomen is round non-distended, Reports epigastric pain, nausea, vomiting. Derm: Skin is healthy with good turgor, Skin is pink, warm \T\ dry. Musculoskeletal: Circulation, motion, and sensation intact. 16:00 Reassessment: Patient appears in no apparent distress at this time. Patient and/or eh3 family updated on plan of care and expected duration. Pain level reassessed. Patient is alert, oriented x 3, equal unlabored respirations, skin warm/dry/pink. 17:00 Reassessment: Patient appears in no apparent distress at this time. Patient and/or eh3 family updated on plan of care and expected duration. Pain level reassessed. Patient is alert, oriented x 3, equal unlabored respirations, skin warm/dry/pink. 18:00 Reassessment: Patient appears in no apparent distress at this time. Patient and/or eh3 family updated on plan of care and expected duration. Pain level reassessed. Patient is alert, oriented x 3, equal unlabored respirations, skin warm/dry/pink. 19:00 Reassessment: Patient appears in no apparent distress at this time. Patient and/or eh3 family updated on plan of care and expected duration. Pain level reassessed. Patient is alert, oriented x 3, equal unlabored respirations, skin warm/dry/pink. 20:00 Reassessment: Patient appears in no apparent distress at this time. Patient and/or eh3 family updated on plan of care and expected duration. Pain level reassessed. Patient is alert, oriented x 3, equal unlabored respirations, skin warm/dry/pink. 21:00 Reassessment: Patient appears in no apparent distress at this time. Patient and/or ha1 family updated on plan of care and expected duration. Pain level reassessed. Patient is alert, oriented x 3, equal unlabored respirations, skin warm/dry/pink. 22:00 Reassessment: Patient and/or family updated on plan of care and expected duration. Pain ha1 level reassessed. Patient is alert, oriented x 3, equal unlabored respirations, skin warm/dry/pink. pain 8/10. 22:32 Reassessment: Patient and/or family updated on plan of care and expected duration. Pain ha1 level reassessed. Patient is alert, oriented x 3, equal unlabored respirations, skin warm/dry/pink. pain 5/10 Patient states feeling better. Patient states symptoms have improved. Vital Signs: 15:10 BP 107 / 52; Pulse 62; Resp 18; Temp 97.9; Pulse Ox 99% on R/A; Weight 88.45 kg; Height ph 5 ft. 10 in. ; 16:00 BP 125 / 63; Pulse 59; Resp 18; Pulse Ox 95% on R/A; eh3 17:00 BP 121 / 57; Pulse 79; Resp 16; Pulse Ox 100% on R/A; eh3 18:00 BP 130 / 58; Pulse 63; Resp 16; Pulse Ox 98% on R/A; eh3 19:00 BP 146 / 57; Pulse 62; Resp 16; Pulse Ox 97% on R/A; eh3 20:00 BP 125 / 58; Pulse 65; Resp 16; Pulse Ox 95% on R/A; eh3 21:00 BP 130 / 58; Pulse 69; Resp 18; Pulse Ox 95% on R/A; ha1 22:00 BP 132 / 59; Pulse 64; Resp 16 S; Pulse Ox 95% on R/A; ha1 15:10 Body Mass Index 27.98 (88.45 kg, 177.8 cm) ph ED Course: 14:59 Patient arrived in ED. im 15:12 Triage completed. ph 15:13 Arm band placed on Patient placed in an exam room. ph 15:14 Haylee Thorpe PA-C is PHCP. sb4 15:14 Jaime Augustin MD is Attending Physician. sb4 15:15 Patient has correct armband on for positive identification. Bed in low position. Call eh3 light in reach. Side rails up X2. Provided Education on: Use of call farrell. Pulse ox on. NIBP on. Door closed. Noise minimized. Lights dimmed. Warm blanket given. 15:23 Charlee Bryant, RN is Primary Nurse. eh3 15:40 CBC with Diff Sent. em1 15:40 CMP Sent. em1 15:40 Lipase Sent. em1 15:40 Initial lab(s) drawn, by me, sent to lab. Inserted saline lock: 18 gauge in right em1 antecubital area, using aseptic technique. Blood collected. 17:02 CT Abd/Pelvis - IV Contrast Only In Process Unspecified. EDMS 17:54 US Abdomen Limited In Process Unspecified. EDMS 19:00 Jesús Narayanan is Hospitalizing Provider. sb4 19:32 Primary Nurse role handed off by Charlee Bryant RN jb4 19:32 PHCP role handed off by Haylee Thorpe PA-C jb4 20:10 Initiated transfer with Ana at [facility]. rv1 20:29 Charlee Bryant, OSMANY is Primary Nurse. eh3 21:[address] Miranda to [facility] [address]. rv1 22:30 No provider procedures requiring assistance completed. Patient transferred, IV remains ha1 in place. Administered Medications: 16:10 Drug: NS 0.9% IV 1000 ml IV at 1 bolus Per protocol; 1000 mL bolus Route: IV; Rate: 1 eh3 bolus; Site: right antecubital; 18:00 Follow up: IV Status: Completed infusion; IV Intake: 1000ml ha1 16:10 Drug: Famotidine IVP 20 mg IVP once; dilute with 10 mL 0.9% NaCl; give over 2 minutes eh3 Route: IVP; Site: right antecubital; 17:00 Follow up: Response: No adverse reaction eh3 16:10 Drug: fentaNYL (PF) IVP 50 mcg IVP once Route: IVP; Site: right antecubital; eh3 17:00 Follow up: Response: No adverse reaction eh3 16:10 Drug: Ondansetron IVP 4 mg IVP once; over 2 minutes Route: IVP; Site: right antecubital;eh3 17:00 Follow up: Response: No adverse reaction eh3 19:25 Drug: Piperacillin-Tazobactam IVPB 3.375 grams IVPB once over 60 mins; (mix in NS 100 eh3 mL) Route: IVPB; Infused Over: 60 mins; Site: right antecubital; 20:25 Follow up: Response: No adverse reaction; IV Status: Completed infusion; IV Intake: eh3 100ml 21:08 Drug: NS 0.9% IV 1000 ml IV at 1 bolus Per protocol; 1000 mL bolus Route: IV; Rate: 1 ha1 bolus; Site: right antecubital; 21:08 Drug: NS 0.9% IV 1000 ml IV at 100 ml/hr once Route: IV; Rate: 100 ml/hr; Site: right ha1 antecubital; 22:20 Drug: Ondansetron IVP 4 mg IVP once; over 2 minutes Route: IVP; Site: right antecubital;ha1 22:30 Follow up: Response: No adverse reaction ha1 22:21 Drug: morphine IVP or IV 4 mg IVP once over 4 mins Route: IVP; Infused Over: 4 mins; ha1 Site: right antecubital; 22:30 Follow up: Response: No adverse reaction; Pain is decreased; RASS: Alert and Calm (0) ha1 Medication: 22:31 VIS not applicable for this client. ha1 Intake: 18:00 IV: 1000ml; Total: 1000ml. ha1 20:25 IV: 100ml; Total: 1100ml. eh3 Outcome: 19:01 Decision to Hospitalize by Provider. sb4 19:30 Patient left the ED. kl 21:18 ER care complete, transfer ordered by . rt 22:30 Transferred by ground EMS to [facility], ha1 22:30 Condition: stable 22:30 Discharge instructions given to patient, Instructed on the need for transfer, Demonstrated understanding of instructions, 22:33 Patient left the ED. ha1 Signatures: Dispatcher [employer] EDMS Brigid Zabala RN RN kl Martinez, Eric em1 Esthela Bryant RN RN ph Bryson, James, RN RN jb4 Hall, Erin, RN RN 3 Lizeth Shore RN RN ha1 Haylee Thorpe, PA-C PA-C sb4 Jaime Augustin MD MD rt Laverne Gary 1 Miranda Weathers
--- NOTE | 2023-05-22 19:01 | EDPHYS ---
Physician Documentation [facility] Name: Patrice Bush Age: 67 yrs Sex: Male : 1955 Arrival Date: 05/22/2023 Time: 14:55 Bed 17 Private MD: ED Physician Jaime Augustin HPI: 05/22 16:46 This 67 yrs old Male presents to ER via Wheelchair with complaints of sb4 Abdominal Pain. 16:46 The patient presents with abdominal pain in the epigastric area, in the right upper sb4 quadrant. Onset: The symptoms/episode began/occurred this morning. The symptoms do not radiate. Associated signs and symptoms: Pertinent positives: nausea and vomiting. The symptoms are described as burning. Modifying factors: The symptoms are alleviated by nothing, the symptoms are aggravated by nothing. The patient has not experienced similar symptoms in the past. Historical: - Allergies: 15:12 No Known Allergies; ph - PMHx: 15:12 renal caancer, bilateral; prostate problems; Arenas; Hypertensive disorder; ph - PSHx: 15:12 Appendectomy; ph - Immunization history:: Adult Immunizations unknown. - Social history:: Smoking status: Patient reports the use of cigarette tobacco products, smokes one-half pack cigarettes per day. ROS: 16:46 Constitutional: Negative for fever, chills, and weight loss, sb4 16:46 Abdomen/GI: Positive for abdominal pain, nausea and vomiting, 16:46 All other systems are negative, Exam: 17:38 Constitutional: This is a well developed, well nourished patient who is awake, alert, sb4 and in no acute distress. 17:38 Head/Face: Normocephalic, atraumatic. Eyes: Extra-ocular motions intact. Periorbital areas with no swelling, redness, or edema. Cardiovascular: Regular rate and rhythm with a normal S1 and S2. Respiratory: Lungs have equal breath sounds bilaterally, clear to auscultation and percussion. No rales, rhonchi or wheezes noted. No increased work of breathing, no retractions or nasal flaring. Skin: Warm, dry with normal turgor. Normal color with no rashes, no lesions, and no evidence of cellulitis. MS/ Extremity: Pulses equal, no cyanosis. Neurovascular intact. Full, normal range of motion. 17:38 Abdomen/GI: Inspection: abdomen appears normal, Bowel sounds: normal, Palpation: moderate abdominal tenderness, in the epigastric area and right upper quadrant, involuntary guarding, is elicited in the right upper quadrant, Vital Signs: 15:10 BP 107 / 52; Pulse 62; Resp 18; Temp 97.9; Pulse Ox 99% on R/A; Weight 88.45 kg; Height ph 5 ft. 10 in. ; 16:00 BP 125 / 63; Pulse 59; Resp 18; Pulse Ox 95% on R/A; eh3 17:00 BP 121 / 57; Pulse 79; Resp 16; Pulse Ox 100% on R/A; eh3 18:00 BP 130 / 58; Pulse 63; Resp 16; Pulse Ox 98% on R/A; eh3 19:00 BP 146 / 57; Pulse 62; Resp 16; Pulse Ox 97% on R/A; eh3 20:00 BP 125 / 58; Pulse 65; Resp 16; Pulse Ox 95% on R/A; eh3 21:00 BP 130 / 58; Pulse 69; Resp 18; Pulse Ox 95% on R/A; ha1 22:00 BP 132 / 59; Pulse 64; Resp 16 S; Pulse Ox 95% on R/A; ha1 15:10 Body Mass Index 27.98 (88.45 kg, 177.8 cm) ph MDM: 15:14 Patient medically screened. sb4 17:38 Differential diagnosis: cholecystitis, Cholelithiasis, non-specific abd pain, sb4 pancreatitis, Peptic Ulcer Disease. 19:00 Data reviewed: vital signs, nurses notes, lab test result(s), radiologic studies, and sb4 as a result, I will admit patient. Consideration of Admission/Observation Patient was admitted/placed on observation. Management of patient was discussed with the following: Hospitalist: TITA Cardenas. Director Of Accounts Payable: General Surgery, Dr. Spears, agrees to consult. Care significantly affected by the following chronic conditions: Hypertension, Cancer. Counseling: I had a detailed discussion with the patient and/or guardian regarding the historical points, exam findings, and any diagnostic results supporting the discharge/admit diagnosis, the presence of at least one elevated blood pressure reading (>120/80) during this emergency department visit, lab results, radiology results, the need for further work-up and treatment in the hospital. 05/22 15:19 Order name: CBC with Diff; Complete Time: 15:52 sb4 05/22 15:19 Order name: CMP; Complete Time: 16:15 sb4 05/22 15:19 Order name: Lipase; Complete Time: 16:15 sb4 05/22 15:19 Order name: CT Abd/Pelvis - IV Contrast Only; Complete Time: 17:36 sb4 05/22 17:26 Order name: US Abdomen Limited; Complete Time: 18:51 sb4 05/22 15:19 Order name: IV Saline Lock; Complete Time: 15:40 sb4 05/22 15:19 Order name: Labs collected and sent; Complete Time: 15:40 sb4 Administered Medications: 16:10 Drug: NS 0.9% IV 1000 ml IV at 1 bolus Per protocol; 1000 mL bolus Route: IV; Rate: 1 eh3 bolus; Site: right antecubital; 18:00 Follow up: IV Status: Completed infusion; IV Intake: 1000ml ha1 16:10 Drug: Famotidine IVP 20 mg IVP once; dilute with 10 mL 0.9% NaCl; give over 2 minutes eh3 Route: IVP; Site: right antecubital; 17:00 Follow up: Response: No adverse reaction eh3 16:10 Drug: fentaNYL (PF) IVP 50 mcg IVP once Route: IVP; Site: right antecubital; eh3 17:00 Follow up: Response: No adverse reaction eh3 16:10 Drug: Ondansetron IVP 4 mg IVP once; over 2 minutes Route: IVP; Site: right antecubital;eh3 17:00 Follow up: Response: No adverse reaction eh3 19:25 Drug: Piperacillin-Tazobactam IVPB 3.375 grams IVPB once over 60 mins; (mix in NS 100 eh3 mL) Route: IVPB; Infused Over: 60 mins; Site: right antecubital; 20:25 Follow up: Response: No adverse reaction; IV Status: Completed infusion; IV Intake: eh3 100ml 21:08 Drug: NS 0.9% IV 1000 ml IV at 1 bolus Per protocol; 1000 mL bolus Route: IV; Rate: 1 ha1 bolus; Site: right antecubital; 21:08 Drug: NS 0.9% IV 1000 ml IV at 100 ml/hr once Route: IV; Rate: 100 ml/hr; Site: right ha1 antecubital; 22:20 Drug: Ondansetron IVP 4 mg IVP once; over 2 minutes Route: IVP; Site: right antecubital;1 22:30 Follow up: Response: No adverse reaction 1 22:21 Drug: morphine IVP or IV 4 mg IVP once over 4 mins Route: IVP; Infused Over: 4 mins; ha1 Site: right antecubital; 22:30 Follow up: Response: No adverse reaction; Pain is decreased; RASS: Alert and Calm (0) ha1 Disposition: 21:19 Co-signature as Attending Physician, Jaime Augustin MD I reviewed the patient's care rt provided by Advanced Practice Provider \T\ agree w/ the diagnosis \T\ care plan. I personally saw the pt \T\ performed a substantive portion of the visit, incldng all aspects of the (History/Exam/Medical Decision Making). Patient evaluated by general surgery, states that patient would likely benefit from transfer for ERCP and cholecystostomy tubes given premorbid status. I evaluated the patient, is mentating appropriately. He is agreeable with transfer. Discussed with the transferring physician accepts patient.. Disposition Summary: 05/22/23 21:18 Transfer Ordered Notes: Transfer Location: [facility] rt Reason: Higher level of care rt Condition: Stable(05/22/23 21:18) rt Problem: new(05/22/23 21:18) rt Symptoms: have improved(05/22/23 21:18) rt Accepting Physician: Dr Miranda(05/22/23 22:33) [facility] Diagnosis - Acute cholecystitis(05/22/23 21:18) rt Forms: - Medication Reconciliation Form rt - SBAR form rt Signatures: Dispatcher [employer] EDBrigid Gutierrez RN RN kl Anderson, Corey, MD MD cha Hall, Patricia, RN RN ph Hall, Erin, RN RN 3 Lizeth Shore RN RN ha1 Haylee Thorpe, PA-C PA-C Jaime Funk MD MD rt Corrections: (The following items were deleted from the chart) 19:37 19:01 shaggy nielsen 19:55 19:28 CONS Physician Consult ordered. EDOH EDMS 20:08 19:01 Inpatient Admission sb4 rt 20:08 19:01 Jesús Narayanan sb4 rt 20:08 19:01 Telemetry/MedSurg (Inpatient) sb4 rt 20:08 19:01 Fair sb4 rt 20:08 19:01 new sb4 rt 20:08 19:01 are unchanged sb4 rt 20:08 19:01 Standard sb4 rt 20:08 19:01 Acute cholecystitis sb4 rt 20:08 19:37 216 kl rt 22:33 21:18 Dr Miranda rt ha1
--- NOTE | 2023-05-22 19:20 | P.HP ---
Certification for Inpatient Patient admitted to: Inpatient With expected LOS: <2 Midnights Patient will require the following post-hospital care: None Practitioner: I am a practitioner with admitting privileges, knowledge of patient current condition, hospital course, and medical plan of care. Services: Services provided to patient in accordance with Admission requirements found in Title 42 Section 412.3 of the Code of Federal Regulations Patient History Date of Service: 05/22/23 Reason for admission: Abdominal pain, cholecystitis History of Present Illness: 67-year-old male with a past medical history of renal carcinoma, prostate enlargement, presents to the emergency room with abdominal pain. He reports epigastric abdominal pain, and right upper quadrant abdominal pain that started today. He reports associated nausea and vomiting today. Nausea and vomiting made worse with p.o. intake. He denies shortness of breath, chest pain, diarrhea, edema, dizziness. He reports chemo every 3 weeks for renal carcinoma, with chronic indwelling Arenas catheter. Vital signsSigns: BP 107 / 52; Pulse 62; Resp 18; Temp 97.9; Pulse Ox 99% on R/A; plan to admit for Acute cholecystitis, with Dr. Spears consulted. Laboratory evaluation WBCs 17.70, early left shift 89.7, BUN 23, creatinine 1.27, estimated GFR 62, blood glucose 175, abdominal ultrasound IMPRESSION: Cholelithiasis with gallbladder wall thickening and pericholecystic fluid suggestive of acute cholecystitis. CT of the abdomen pelvis IMPRESSION: Markedly distended gallbladder with wall thickening and pericholecystic fat stranding, concerning for acute cholecystitis. Focus of gas near the fundus may be present within a radiolucent stone Allergies No Known Allergies Allergy (Verified 09/06/22 14:10) Home Medications: Amlodipine Besylate 10 mg PO DAILY 09/06/22 Oxybutynin Chloride [Oxybutynin Chloride ER] 5 mg PO DAILY 09/06/22 Tamsulosin [Flomax*] 1 cap PO DAILY 09/06/22 Review of Systems 10-point ROS is otherwise unremarkable Physical Examination - Studies Laboratory Data (last 24 hrs) 05/22/23 05/22/23 15:37 15:37 WBC 17.70 H Hgb 14.5 Hct 42.3 Plt Count 200 Sodium 139 Potassium 3.9 BUN 23 H Creatinine 1.27 Glucose 175 H Total Bilirubin 0.9 AST 11 L ALT 15 L Alkaline Phosphatase 70 Lipase 18 Assessment and Plan - Plan Assessment plan chemo every 3 weeks for renal carcinoma, with chronic indwelling Arenas catheter. Vital signsSigns: BP 107 / 52; Pulse 62; Resp 18; Temp 97.9; Pulse Ox 99% on R/A; plan to admit for Acute cholecystitis, with Dr. Spears consulted. Laboratory evaluation WBCs 17.70, early left shift 89.7, BUN 23, creatinine 1.27, estimated GFR 62, blood glucose 175, abdominal ultrasound IMPRESSION: Cholelithiasis with gallbladder wall thickening and pericholecystic fluid suggestive of acute cholecystitis. CT of the abdomen pelvis IMPRESSION: Markedly distended g allbladder with wall thickening and pericholecystic fat stranding, concerning for acute cholecystitis. Focus of gas near the fundus may be present within a radiolucent Discharge Plan: Home Plan to discharge in: 48 Hours - Advance Directives Does patient have a Living Will: No Does patient have a Durable POA for Healthcare: No - Code Status/Comfort Care Code Status Assessed: Yes Code Status: Full Code Physician Review: Patient Assessed, Agree with Above Assessment and Plan Critical Care: No Time Spent Managing Pts Care (In Minutes): 50
[2023-05-22] MEDS ORDERED: PIPERACIL/TAZO 3.375 GM VIAL IV ONE (19:29)
[2023-05-22] MEDS ORDERED: NA CHLORIDE 0.9% 100 ML ONE (19:29)
[2023-05-22 20:40] VITALS: TEMP 97.9
[2023-05-22] MEDS ORDERED: NA CHLORIDE 0.9% 2,000 ML ONE (21:37)
[2023-05-22] MEDS ORDERED: MORPHINE 4 MG/ML SYR ONE (22:34)
--- NOTE | 2023-05-22 23:50 | CON ---
Date of Consultation: 05/22/2023 History Of Present Illness: Mr. Patrice Bush is a -fyzi-cbl patient with 9 months alrea dy of chemotherapy for kidney cancer. He does not have all the details of that. He says he is still in process. He saw his oncologist recently and they may have to even give radiation therapy. No franz rgeries done yet. While yesterday, he decided to have baked potato with butter and starte d to have abdominal pain. Comes today with epigastric right upper quadrant pain radiating to the jena k associated with nausea and vomiting. I was called. Initially, I was in OR and came here to the ER right now to get all the story. Allergies: NONE. Medications: Oxybutynin, Flomax. Review of Systems: As above. No fever, but nausea, vomiting, right upper quadrant abdominal pain. No jaundice. Past Medical History: Kidney cancer and chemotherapy. Family History: Noncontributory. Physical Examination: General: Patient is awake, alert. HEENT: Pupils are equal and reactive. Anicteric. Neck: Supple. Chest: Clear. Abdomen: Epigastric with right upper quadrant pain with Browning sign positive and peritonitis, right upper quadrant. No rebound tenderness. Extremities: Good capillary refill. Laboratory Data: Blood work shows WBC count of 17 with potassium 3.9 and total bilirubin of 0.9. Li pase 18. Ultrasound and CAT scan of the abdomen and pelvis interpreted by Dr. Johnson shows a markedl y distended gallbladder with wall thickening and pericholecystic fat stranding concerning for acute c holecystitis. They also may see a focus of air near the fundus, may be present within a radiolucent stone. Patient has fat stranding extending toward the adjacent retroperitoneum and rowdy hepatis. M ild central intrahepatic biliary duct dilatation with mild hypoenhancement noted along the central bi liary radicles and the common hepatic duct. Assessment: This is a -sfrd-dwr patient on chemotherapy for kidney cancer with leukocytosi s, findings of cholecystitis, thickening around the area, pericholecystic fluid, and probably gas sarah r the fundus of the bladder that cannot rule out. Now, we trying to see what options we have in this institution. We cannot do MRCP. He says he cannot have it due to clips on his brain. We have no G I doctor this moment to do interventional or do an ERCP and we have no treatment at this moment for p ercutaneous gallbladder cholecystostomy tube that he may even need to live this since he is in chemot herapy at this moment. So, I believe he should be in a higher level of care and what they could prov shreya at least 1 of those services. He is high risk in an institution, but definitely without the reso urces in this institution, I believe we are not giving him the treatment he deserves at this moment. I wish him the best to discuss that with the ER physician. I believe this patient should not be adm itted in this institution. The patient understands and agreed with that. OSMIN/MARJORIE Voice ID: [id number] Report ID: [id number]
[2023-05-23 00:26] VITALS: O2SAT 95
[2023-05-23 00:29] VITALS: BP 132/59
== END 2023-05-22 22:33 | disposition short-term general hospital (02) ==
LOC: ER 14:55
DX: K81.0 Acute cholecystitis (principal); C64.9 Malignant neoplasm of unspecified kidney, except renal pelvis; I10 Essential (primary) hypertension; F17.210 Nicotine dependence, cigarettes, uncomplicated
CPT/HCPCS: 85025; 36415; 83690; 80053; 74177; 76705; Q9967; J2543; J3010; J2405 ×2; J7030 ×2

== ENCOUNTER 2023-08-06 09:54 | Day surgery (SDC) | payer OTHER ==
[2023-07-29 15:46] LABS: Absolute Lymphocytes (CBC) 1.7 K/uL (0.7-4.9); Hematocrit 39.7 % (39.6-49.0); Lymphocytes % 24.2 % (15.3-44.8); MCV 93.4 fL (80-100); MPV 7.8 fL (7.6-11.3); Platelets 202 thou/uL (152-406); RBC Red Blood Cell Count 4.25 M/uL (4.33-5.43)
[2023-07-29 15:47] LABS: Protime INR 1.23
[2023-07-29 15:54] LABS: Potassium 3.9 mEq/L (3.5-5.1)
--- NOTE | 2023-07-29 21:35 | RAD REPORT ---
EXAM DESCRIPTION: RAD - Chest Pa And Lat (2 Views) - 07/29/2023 3:37 pm CLINICAL HISTORY: PRE OP FOR SURGERY. Hypertension COMPARISON: Thorax W/ Con dated 07/17/2023 TECHNIQUE: PA and lateral views of the chest were obtained. FINDINGS: The lungs show a posterior reticular opacity, probably in the medial right lower lobe, shweta ears stable and likely relating to atelectasis or scarring. Heart size is normal and central vasculat ure is within normal limits. No pleural effusion or pneumothorax seen. No acute bony finding noted. IMPRESSION: No acute cardiopulmonary process.
--- NOTE | 2023-08-01 15:27 | EKG ---
Test Date: 2023-07-29 Test Time: 16:19:45 Van Owner Operator: YAMILET MEASUREMENT RESULTS: Intervals: Rate: 60 TN: 138 QRSD: 92 QT: 386 QTc: 386 [place]: P: 62 TN: 138 QRS: 64 T: 54 INTERPRETIVE STATEMENTS: Normal sinus rhythm Normal ECG No previous ECG available for comparison Electronically Signed On 08-01-23 15:15:38 TRIAL EXAMINER by Rome Barnard
[2023-08-06] MEDS ORDERED: Ringers Lactate 1,000 ML IV ONE ×2 (10:21→14:29)
[2023-08-06 10:55] VITALS: O2SAT 100
[2023-08-06] MEDS ORDERED: ONDANSETRON 4 MG/2 ML VIAL ONE (12:26)
[2023-08-06] MEDS ORDERED: LIDOCAINE 1% MPF 5 ML VIAL ONE (12:26)
[2023-08-06] MEDS ORDERED: FENTANYL CITR 100 MCG/2 ML ONE ×2 (12:27→13:24)
[2023-08-06] MEDS ORDERED: propofoL 200 MG/20 ML VIAL IV ONE (12:27)
[2023-08-06] MEDS ORDERED: AMPICILLIN SODIUM 2 GM/VIAL VIAL ONE (12:35)
[2023-08-06] MEDS ORDERED: GLYCOPYRROLATE 0.2 MG/ML SYR ONE ×2 (13:00→13:01)
[2023-08-06] MEDS ORDERED: Gentamicin Inj 200 MG in NA CHLORIDE 0.9% 100 ML IVPB ONE (13:00)
[2023-08-06] MEDS ORDERED: BACITRACIN OINTMENT 14 GM TUBE TOP ONE (13:07)
[2023-08-06] MEDS ORDERED: EPHEDRINE SULF 50 MG/ML VIAL ONE (14:33)
[2023-08-06] MEDS ORDERED: PHENAZOPYRIDINE 100MG TAB PO ONE (15:24)
[2023-08-06] MEDS ORDERED: CODEINE 30MG/APAP 300MG TAB PO PRN (15:24)
[2023-08-06 15:39] VITALS: TEMP 97.5
[2023-08-06] MEDS ORDERED: OXYBUTYNIN ER 5 MG TAB PO ONE (16:32)
[2023-08-06] MEDS ORDERED: CODEINE 30MG/APAP 300MG TAB ONE (16:32)
[2023-08-06 18:28] VITALS: BP 146/80
--- NOTE | 2023-08-06 19:00 | OP ---
Surgeon: REYNALDO RODRIGUEZ Preoperative Diagnoses: 1.Benign prostatic hypertrophy with urinary retention. 2.Elevated PSA. 3.Bilateral renal masses. Postoperative Diagnoses: 1.Benign prostatic hypertrophy with urinary retention. 2.Elevated PSA. 3.Bilateral renal masses. Principal Procedure: Bipolar transurethral resection of the prostate-extensive, greater than 120 g. Indication For Procedure: Mr. Bush presented to the Urology Clinic having been seen in the [facility] Department with acute urinary retention. He underwent outpatient evaluation including urodyna mics evaluation, which revealed significant detrusor instability, but an adequately contractile detru sor. As a result, he was counseled on the potential benefit to surgical therapy to manage his obstru ction and restore his ability to void. While his PSA was elevated, given the size of his prostate, 1 28 g, his PSA density was low, at 8%. He was counseled on the potential benefit to surgical therapy, and given his need for surgical and procedural therapy for his bilateral renal masses, a bipolar TUR P was recommended as the most expedient of the outpatient methods of surgical management for his pros smith. Of note, I counseled him extensively with his family at the beginning of the procedure ewa cabral his delay in management of his bilateral renal masses. He had previously been counseled extensive ly on the presence of a central mass involving his left kidney, making it not amenable to a partial n ephrectomy or likely even ablation without damaging the surrounding vasculature. As a result, the le ft kidney will likely require nephrectomy. He also has known renal cell carcinoma involving a mass w ithin his right kidney. To minimize the risk of bilateral renal loss and dialysis, I recommended he undergo interventional radiology cryo or radiofrequency ablation of the right renal mass prior to ant icipated left laparoscopic radical nephrectomy. The patient is yet to schedule the consultation with Interventional Radiology despite being referred there over 2 months ago at this point. I thus couns eled him extensively on the risk of metastasis and from renal cell carcinoma and recommended in fact that his daughter call on his behalf, since the patient agreed it was okay to discuss in front of them, to try to schedule an appointment for consultation. I also recommended they while here, obt ain a CD of his most recent abdomen and pelvis imaging to take with them to that consultation. Procedure In Detail: The patient was consented in the preoperative holding area before being transfe rred to the operative suite, where general anesthesia was induced. He was given ampicillin 2 g and g entamicin 200 mg IV antimicrobial prophylaxis, and pneumo boots were provided for DVT prophylaxis. Brie babb was placed in the lithotomy position, padded and secured to the table appropriately, and his genita mateo was prepped with Hibiclens before being draped in standard fashion after the urethral Arenas carlo ter indwelling had been removed. The case was begun using the 26-Japanese resectoscope sheath and a vi sual obturator to traverse the urethra and into the bladder. As previously noted, there was extensiv e intravesical projection of the median lobe that obscured the ureteral orifices completely. There w as additionally extensive interdigitating lateral lobar hypertrophy and anterior intravesical project ion resulting in 4-lobar obstruction. As a result, I began resecting the median lobar component of brie wells prostate by identifying the right ureteral orifice, and grabbing the lip of the median lobe that w as overlapping the ureteral orifice and resecting it with the ureteral orifice in direct vision and a voiding any mucosal injury in or around the ureteral orifice. Once I was successful at leveling the median lobe and the elevated median bar down even with the level of the trigone and his bladder, I th en looked to the left ureteral orifice where I similarly used the loop to pull the median lobe from o verlying the orifice and keeping the orifice in direct vision, I resected the intravesical component of the median lobe overlying the orifice until it was smooth with the level of the trigone at the kimberly dder neck. I then resected the intervening median lobar tissue making sure to avoid injury to the tr igone or the ureteral orifices. Once this was done, the median lobe had been resected down even to t he level of the trigone and the bladder neck. I then began resecting the elevated component of the m edian bar in components because of the extended prostatic urethral length, likely 4 to 5 cm in length . I resected a portion of the elevated median bar involving the proximal 1/3 of the prostatic urethr a, then the mid 1/3 of the prostatic urethra, unroofing a large prostatic abscess in the process, and then the most distal component of the elevated median bar approximating the verumontanum. Once this was largely resected and a smooth trough had been created, I then extended my resection at the level of the bladder neck into the patient's right side and the right lateral lobe at the bladder neck, be fore then resecting the left lateral lobe at the bladder neck and extending this around to the anteri or zone of the prostate. Once the bladder neck component of the prostate had been resected circumfer entially, I then continued resection of the lateral lobe starting with the right lateral lobe again r esecting the proximal 1/2 of the prostate to the mid gland and then the distal 1/2 from the mid gland to the apex. I did this on both sides of both lateral lobes and extended that around into the anter ior zone of the prostate where appropriate. I then focused on the apex where the interdigitating tis dereje there was resected in stages in order to decrease the interdigitation and ultimately see that the tissue was no longer interdigitating and only potentially kissing with the bladder completely decomp ressed. So in short, after extensive resection of all components of the prostate avoiding resecting beyond the verumontanum, with his bladder completely decompressed, I reassessed the channel created, and there was a clear open channel with the exception of a slight degree of residual apical tissue th at was kissing in the midline. All prostate chips were intermittently evacuated from within his blad espinoza using the Ellik evacuator at multiple points throughout the operation, and fulguration was perfor med extensively at multiple points throughout the operation; however, once I was mostly satisfied wit h the resection, I then began a careful progression to extensively fulgurate any and all bleeding ves sels along the inner surface of the prostate with the bladder completely decompressed. Once the urin e and efflux of fluid were clarified, I then continued to ensure all prostate chips had been removed using the Ellik evacuator and direct vision where necessary, and then with the urine essentially marisol r, I went along and fulgurated any and all slight oozing vessels observed with his bladder completely decompressed. Once completely hemostatic, I then surveyed the bladder for any residual prostate chi ps and ensured the ureteral orifices remained uninjured, once I confirmed this, I then surveyed the p rostatic fossa on the way out, ensuring to fulgurate any venous ooze on the way out and then removed the scope leaving the bladder backfilled with saline before placing a 24-Japanese 3-way Arenas catheter into his bladder with ease and placing 30 cc of sterile water in the balloon. The catheter was conne cted to a StatLock and slow drip CBI and the efflux of urine was completely clear. He was then taken out of the lithotomy position, awakened from general anesthesia, transferred to a stretcher, and the n transferred to the recovery room in good condition. Complications: None. Discharge Disposition: He may follow up in Urology Clinic on Saturday or Saturday for voiding trial. He should continue taking the antimicrobials prescribed for him preoperatively until the prescription i s complete. He should also follow up for preoperative evaluation and consultation prior to scheduled left nephrectomy to ensure he indeed completed the Interventional Radiology consultation. Depending on the time schedule for that procedure with Interventional Radiology, he may need to have his left nephrectomy delayed, as we will want at least 6 weeks to 2 months from the ablation before his left k idney should be removed. SUMANTH/MARJORIE Voice ID: [id number] Report ID: [id number]
[2023-08-07] MEDS ORDERED: OXYBUTYNIN ER 5 MG TAB PO SCH (09:00)
== END 2023-08-06 17:58 | disposition home or self-care (01) ==
LOC: OR 09:54
PROVIDERS: ATTEND Urology
PROC: 0VT08ZZ Resection of Prostate, Via Natural or Artificial Opening Endoscopic (ICD-10-PCS; principal; 2023-08-06 11:00)
DX: N40.1 Benign prostatic hyperplasia with lower urinary tract symptoms (principal); R33.8 Other retention of urine; R97.20 Elevated prostate specific antigen [PSA]; C64.1 Malignant neoplasm of right kidney, except renal pelvis; N28.89 Other specified disorders of kidney and ureter; I10 Essential (primary) hypertension; F17.210 Nicotine dependence, cigarettes, uncomplicated; Z79.899 Other long term (current) drug therapy
CPT/HCPCS: 93005; 87088; 85025; 87086; 80048; 36415; 85610; 88305; 87077; 87186; 71046; 52601; J2704; J2001; J1580; J3010 ×2; J2405; J0290; J7120 ×2